=== PATIENT | male | born 1950 | race Caucasian/White ===

== ENCOUNTER → 2017-09-11 16:47 | Outpatient (CLI) | payer MEDICARE, OTHER, SELFPAY ==
--- NOTE | 2017-09-11 14:10 | BON_PTH ---
PATIENT: ONI GAY LOC: [facility] U#:[id number] AGE/SX: 75/M ROOM: RE09/11/[address]: Dr. Karl Roth MD : 1950 BED: DIS: SPEC #: [id number] RECD: 09/11/17 16:42 STATUS: SOILA SEBASTIÁN #: [id number] MAURICIO: 09/11/17 14:[address]: Karl Roth DEPT: SURGICAL PATHOLOGY RECD BY: Roge Bueno ENTERED: 09/12/17 12:12 SP TYPE: Bone OTHR DR: ANA ROSA Tissues: Vertebra, NOS Procedures: Decalcification bone/plaque Surgery Specimen Level IV HEADER OPERATION: Kyphoplasty L2 PRE-OP DIAGNOSIS: Closed fracture lumbar vertebra, burst TISSUE SUBMITTED: Bone L2 MICROSCOPIC DIAGNOSIS Bone, L2, kyphoplasty: A piece of bone with reactive changes, negative for malignancy. SJ:byron 09/13/17 MICROSCOPIC DESCRIPTION Slides are reviewed. GROSS DESCRIPTION Received is one container labeled with the patient's name and not further designated. The specimen consists of an elongated piece of willoughby bone measuring 0.7 cm in length and 0.2 cm in diameter. The entire specimen is submitted in one cassette after decalcification. / SJ:byron 09/12/17 TC:5 CPT: 81161, 33817
== END ==
PROVIDERS: Visit Provider Anesthesiology Pain Medicine
DX: S32.021A Stable burst fracture of second lumbar vertebra, initial encounter for closed fracture (principal)
CPT/HCPCS: 88305; 88311

== ENCOUNTER → 2018-10-01 | Outpatient (CLI) | payer MEDICARE, SELFPAY ==
--- NOTE | 2018-10-01 13:00 | SP.MBSS_ITS ---
PRIMARY / SECONDARY DIAGNOSIS: dysphagia (R13.10) REFERRING PHYSICIAN: FAHAD Fried CURRENT DIET: regular textures, thin liquids DENTITION: majority of dentition missing MENTAL STATUS: WFL RESPIRATORY STATUS: O2 via room air REASON FOR REFERRAL: The Patient is a 68 year old male referred for a modified barium swallow (MBS) study to objectively assess the Patients oropharyngeal swallow function under fluoroscopy secondary to reported dysphagia primarily for solids, with intermittent strong coughing episodes during intake (~ 2-3x per week). Upon further questioning, the Patient does report a strong correlation with coughing episodes during intake and suboptimal positioning (eating in recliner), which may account for the Patients reported dysphagia. MEDICAL HISTORY: Chronic obstructive pulmonary disease, osteoporosis, hypertension, back pain (per Patient report). PREVIOUS MODIFIED BARIUM SWALLOW STUDY: None ASSESSMENT PARAMETERS: The Patient participated in a Modified Barium Swallow (MBS) study on 10/01/2018. This study was recorded in the lateral view and images were sent to PACs for storage. Scoring was completed through each trial using the 8- point Penetration-Aspiration Scale (PAS) and summarized via the Modified Barium Swallow Impairment Profile (MBSImP) and the Bolus Residue Scale (BRS), with severity scoring through the Dysphagia Severity Rating Scale (DSRS) and Swallowing Performance Scale (SPS), and recommended diet textures through the International Dysphagia Diet Standardisation Initiative (IDDSI) RESULTS OF THE EVALUATION: The Patient presents with mastication and deglutition abilities found to be grossly within functional limits OBJECTIVE ASSESSMENT OF SWALLOW FUNCTION (QUANTITATIVE ? PER TRIAL): PENETRATION / ASPIRATION SCALE (HERNANDEZ): 1 = does not enter airway 2 = enters airway/above vocal folds/ejected 3 = enters airway/above vocal folds/not ejected 4 = enters airway/contacts vocal folds/ejected 5 = enters airway/contacts vocal folds/not ejected 6 = enters airway/below vocal folds/ejected 7 = enters airway/below vocal folds/not ejected despite effort 8 = enters airway/below vocal folds/no effort PENETRATION / ASPIRATION SCALE (SCORE): Thin liquid - 5 mL tsp.: 1 Thin liquids via cup (single sip): 1 Thin liquids via cup (single sip): 1 Thin liquids via cup (single sip): 1 Thin liquids via straw (single sip): 1 Pudding via spoon: 1 Regular textured cookie: 1 Thin liquids via straw (single sip): 1 OBJECTIVE ASSESSMENT OF SWALLOW FUNCTION (QUANTITATIVE ? AGGREGATE): MODIFIED BARIUM SWALLOW IMPAIRMENT PROFILE (MBSImP) LABIAL SEAL: 0 (of 4) no labial escape TONGUE CONTROL: 2 (of 3) posterior escape < 50% BOLUS PREPARATION / MASTICATION: 1 (of 3) slow prolonged; complete recollection BOLUS TRANSPORT / LINGUAL MOTION: 1 (of 4) delayed initiation of motion ORAL RESIDUE: 1 (of 4) trace residue lining oral structures INITIATION OF PHARYNGEAL SWALLOW: 0 (of 4) posterior angle of ramus SOFT PALATE ELEVATION: 0 (of 4) no bolus between soft palate & pharyngeal wall LARYNGEAL ELEVATION: 0 (of 3) complete superior movement / approximation ANTERIOR HYOID EXCURSION: 0 (of 2) complete movement EPIGLOTTIC MOVEMENT: 0 (of 2) complete inversion LARYNGEAL VESTIBULE CLOSURE: 0 (of 2) complete closure PHARYNGEAL STRIPPING WAVE: 0 (of 2) present / complete PE SEGMENT OPENIN (of 3) complete distension / duration; no obstruction TONGUE BASE RETRACTION: 1 (of 4) trace column of contrast PHARYNGEAL RESIDUE: 1 (of 4) trace residue ESOPHAGEAL BOLUS CLEARANCE: 1 (of 4) esophageal retention BOLUS RESIDUE SCALE (BRS): 2 (of 6) residue in valleculae DYSPHAGIA SEVERITY RATING SCALE (DSRS): 1 (within functional limits) SWALLOWING PERFORMANCE SCALE (SPS): 2 (WFL) OBJECTIVE ASSESSMENT OF SWALLOW FUNCTION (QUALITATIVE): ORAL PREPARATORY PHASE: prolonged mastication attributed to near edentulous status; sufficient oral containment during manipulation; preserved management of breathing / bolus formation ORAL TRANSITIONAL PHASE: no presence of transitional incompetence aside from an intermittent 2-3 second onset delay, though this may be more attributed to the Patients distaste for the barium, as this was less than consistent and did not carry over to more viscous textures; sufficient oral clearance; mild premature posterior bolus loss to the valleculae during thin liquid trials. PHARYNGEAL PHASE: pharyngeal phase appears unremarkable; no signs of pharyngeal dyssynchrony; sufficient hyolaryngeal excursion; sufficient / consistent laryngeal vestibule pressure generated to expel penetrated material; no signs of pharyngeal dysmotility; no signs of velopharyngeal impairments; no penetration / aspiration throughout trials. ESOPHAGEAL PHASE: esophageal phase appears unremarkable; mild amounts of brief retention do not appear to demonstrate a clinically significant disorder. CONTRIBUTING / COMPLICATING FACTORS AND NOTABLE FINDINGS: rather marked kyphosis, somewhat frail / fragile appearance with higher risk of sarcopenia. 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 RESPONSE TO STRATEGIES: All deficits ameliorated with reduction in bolus rate / volume adjustments, and appropriate seated position. RECOMMENDATIONS AND CONSIDERATIONS: Noted oral preparatory phase findings appear to be managed well by the Patient upon interview, as he self-selects appropriate textures to account for his suboptimal dental status; reports upcoming plans to obtain dental prosthetic devices. The Patient was able to comprehend information presented upon review and express recommended intake precautions (reduced bolus volume) to suggest high likelihood of compliance. Provided a brief overview of signs and symptoms of aspiration, with recommendations for the Patient to further discuss any further symptoms with the Patients primary care physician. No further skilled speech-language services warranted at this time targeting dysphagia. DIET TEXTURE RECOMMENDATIONS: Will recommend a regular ? soft textured (IDDSI: 6), thin liquid diet (IDDSI: 0) diet RECOMMENDED COMPENSATORY STRATEGIES: Reduced bolus volume / rate of ingestion, consider cutting tougher textures into bite sized pieces, seated upright at 90 degrees during PO intake, remain upright for 30-60 minutes post meal (GERD precaution) IMAGE COUNT: [id number] Luis James M.A., CCC-GAS CONTROLLER MBSImP Certified, LSVT Certified [facility] Speech-Language Pathology Department [email or web address]
--- NOTE | 2018-10-01 13:20 | RAD_ITS ---
STUDY: SWALLOWING STUDY REASON FOR EXAM: Male, 68 years old. TECHNIQUE: The examination was performed with Speech Pathology in attendance. Under fluoroscopic observation, the patient ingested thin barium, thick barium, barium pudding, and barium coated cracker. FLUOROSCOPY TIME: 1:44 minutes/seconds. 1602 images were obtained. RADIOLOGIST INVOLVEMENT: Radiologist was present and providing direct supervision. COMPARISON: None. FINDINGS: The following was observed during swallowing of the various mixtures of barium: Thin Barium: There was no evidence of aspiration or laryngeal penetration. Barium Pudding: There was no evidence of aspiration or laryngeal penetration. Barium Coated Cracker: There was no evidence of aspiration or laryngeal penetration. RAD/Swallowing Function w/Video IMPRESSION: Normal tailored barium swallow study. No evidence of increased risk for aspiration. The swallow study findings were discussed with the patient by the speech pathologist at the conclusion of the examination. Please see speech pathology report for more information and recommendations. Electronically Signed: Edilberto Choudhury, at 14:28 EDT , Service support ,
== END | disposition home or self-care (01) ==
PROVIDERS: Family Provider Nurse Practitioner Family; PCP Nurse Practitioner Family; Referring Provider Nurse Practitioner Family; Visit Provider Nurse Practitioner Family
DX: R13.10 Dysphagia, unspecified (principal)
CPT/HCPCS: 74230; 92611

== ENCOUNTER 2021-05-16 12:04 | Day surgery (SDC) | payer MEDICARE, MEDICAID, SELFPAY ==
--- NOTE | 2021-03-03 14:54 | NURSING ---
Addendum entered by Isadora Ocasio 03/03/21 15:00: Pt was encouraged by DEEPAK RN to keep current appointment as appreciation for his time for conveying health history was given. Pt gave reason that of next week, the scheduled appointment, was not enough time to prepare. Encouragement given. Original Note: During PAT phone interview, pt repeatedly stated that PAT should have all of this information. Pt instructed that PAT did not have the health information as PAT did not have the record from the doctor's office. DEEPAK RN apologized in a soft voice repeatedly for the inconvenience and repeatedly conveyed appreciation for pt's time and repeated understanding for the frustration. Pt continued throughout interview to raise his voice at DEEPAK RN. After collecting health history, DEEPAK SKY began giving instructions regarding when the OR sec'y would call with his arrival time. Pt stated that the scheduled date for the EGD would not work. Pt instructed to call Dr Landa's office.
[2021-05-16] VITALS (9 sets, daily range): BP systolic 90–130; BP diastolic 58–70; PULSE 61–73; RESP 16–18; TEMP 36.1–36.3; O2SAT 94–97; BMI 16.0
--- NOTE | 2021-05-16 13:00 | EGD_PTH ---
PATIENT: ONI GAY LOC: EN U#:[id number] AGE/SX: 71/M ROOM: RE05/16/[address]: Dr. Jamal Landa DO : 1950 BED: DIS: 05/16/2021 SPEC #: [id number] RECD: 05/16/21 16:18 STATUS: SOILA PEREZAmanda #: [id number] MAURICIO: 05/16/21 13:[address]: Jamal Landa DEPT: SURGICAL PATHOLOGY RECD BY: Jagdeep Patel ENTERED: 05/17/21 09:52 SP TYPE: EGD BIOPSY [facility] DR: Christine Ricardo, VALVE REPAIRER-C Tissues: Esophagus, NOS Procedures: Surgery Specimen Level IV HEADER OPERATION: EGD ([facility]) PRE-OP DIAGNOSIS: Dysphagia, GERD, weight loss TISSUE SUBMITTED: Distal esophagus biopsy MICROSCOPIC DIAGNOSIS Distal esophagus, biopsy: Gastroesophageal junctional mucosa with chronic inflammation. No evidence of goblet cell metaplasia. See comment. AM:byron 05/18/2021 COMMENT Alcian blue/PAS stain with matched control supports the above diagnosis. MICROSCOPIC DESCRIPTION Slides are reviewed. GROSS DESCRIPTION Received in fixative is one container labeled with the patient's name and designated distal esophagus biopsy. The specimen consists of multiple irregular fragments of light willoughby soft tissue that in aggregate measure 1 x 0.3 x 0.1 cm. The specimen is totally submitted in one cassette. / AM:byron 05/17/21 TC:3 CPT: 66156
[2021-05-16] MEDS: Lactated Ringers 1,000 ML 15 ML IV (13:08)
--- NOTE | 2021-05-16 13:15 | HP.PCM_ITS ---
History and Physical Date of Admission: 05/16/21 Details: ONI GAY, is a 71 M who presents to the office today for Difficulty with swallowing - pays particular attention to diet. Has difficulty with some medication. Dysphagia has been going on for a couple of years. Coughs up phlegm daily - clear with no blood. EGD done last fall where they opened something up. Has has throat dilated twice first was approximately 2 years ago. He does not know what esophageal pathology that needs to be dilated. He does have a cough from COPD. He wears about 2 L oxygen as needed. He does not have a history of obstructive sleep apnea. Feels he may need something done soon and wants to establish care at this time. He also has been struggling with his weight. He is on a Ensure protein supplement once a day. He was down to 100 pounds and is up to 112 pounds. He has been around 110 no 112 pounds for the last couple months. He is a mild esophageal reflux disease. He denies any chest pain or shortness of breath. He denies any melena or hematochezia. ROS Const Constitutional: Positive for weakness ENT ENT: Positive for difficulty swallowing Cardio Cardiology: Positive for dyspnea on exertion and difficulty breathing Gastro GI: Positive for heartburn and difficulty swallowing Genitourinary Male: Positive for urinary frequency and urinary urgency Musc Musculoskeletal: Positive for back pain, muscle weakness and restless legs Neuro Neurology: Positive for weakness and restless legs Psych Psychiatric: Positive for anxiety Endo Endocrine: Positive for cold intolerance, heat intolerance and increased urine leakage Tor/Lymp Hematologic/Lymphatic: Positive for easy bruising Exam Const General: cooperative and comfortable Nutritional Appearance: average body habitus and well nourished [facility] Head: normal to inspection Ears: hearing grossly normal bilaterally Nose: external nose normal Face and sinus: normal facial exam Mouth: oral mucosae normal Throat: posterior oropharynx normal Eyes General: appearance normal, both eyes and all related structures Neck Neck: normal visual inspection Chest Chest palpation & inspection: normal inspection of the chest and normal palpation of entire chest wall Resp Effort & Inspection: normal respiratory effort Auscultation: Bilateral: Clear to Auscultation Cardio Palpation: normal PMI Rate: regular rate Rhythm: regular rhythm GI Inspection: normal to inspection Auscultation: normal bowel sounds Percussion: normal to percussion Palpation: no hepatosplenomegaly Skin General: no rashes or lesions noted Neuro General: patient alert Extrem General: normal to inspection Psych Affect: normal affect Assessment and Plan Assessment and Plan (1) Dysphagia: Status: Acute Plan - Dr. Berry Friend, DO: He will have his esophagus evaluated for eosinophilic esophagitis, esophageal stricture, esophageal web, esophageal ring, hiatal hernia and Chew's esophagus. He elected to undergo dilation. He was explained alternatives, risk, benefits including not withstanding bleeding, infection, sepsis, perforation, need for surgery . He will have ASA of 3. (2) GERD (gastroesophageal reflux disease): Status: Acute Plan - Dr. Berry Friend, DO: At this time his reflux is not as bad as it was and wants to wait regarding medication recommendations until he has upper endoscopy. (3) Weight loss: Status: Acute Plan - Dr. Berry Friend, DO: Patient may need evaluation with CT scan abdomen pelvis. I suspect his weight loss is from cachexia. He may also need tumor markers and colonoscopy. I have re-examined the patient. There are no clinical changes since date of exam.
--- NOTE | 2021-05-16 13:46 | OP.EGD_ITS ---
Patient Name: José Miguel Thorne Procedure Date: 05/16/2021 1:19 PM Date of : 1950 Age: 71 Procedure: Upper GI endoscopy Indications: Dysphagia Providers: Jamal Landa DO Patient Profile: This is a 71 year old male. Refer to note in patient chart for documentation of history and physical. Patient has symptoms of chronic dysphagia and dysphagia with solids. Complications: No immediate complications. Procedure: Pre-Anesthesia Assessment: - Prior to the procedure, a History and Physical was performed, and patient medications and allergies were reviewed. The risks and benefits of the procedure and the sedation options and risks were discussed with the patient. All questions were answered and informed consent was obtained. Patient identification and proposed procedure were verified by the physician in the pre-procedure area. Mental Status Examination: alert and oriented. Airway Examination: normal oropharyngeal airway and neck mobility. Respiratory Examination: clear to auscultation. CV Examination: normal. Prophylactic Antibiotics: The patient does not require prophylactic antibiotics. Prior Anticoagulants: The patient has taken no previous anticoagulant or antiplatelet agents. After reviewing the risks and benefits, the patient was deemed in satisfactory condition to undergo the procedure. The anesthesia plan was to use moderate sedation / analgesia (conscious sedation). Immediately prior to administration of medications, the patient was re-assessed for adequacy to receive sedatives. The heart rate, respiratory rate, oxygen saturations, blood pressure, adequacy of pulmonary ventilation, and response to care were monitored throughout the procedure. The physical status of the patient was re-assessed after the procedure. After obtaining informed consent, the endoscope was passed under direct vision. Throughout the procedure, the patient's blood pressure, pulse, and oxygen saturations were monitored continuously. The gastroscope was introduced through the mouth, and advanced to the second part of duodenum. The patient tolerated the procedure well. Moderate Sedation: Moderate (conscious) sedation was administered by the endoscopy nurse and supervised by the endoscopist. The patient's oxygen saturation, heart rate, blood pressure and response to care were monitored. Total physician intraservice time was 15 minutes. Scope In: 1:27:37 PM Scope Out: 1:39:15 PM Total Procedure Duration Time 0 hours 11 minutes 38 seconds Findings: A moderate Schatzki ring was found at the cricopharyngeus, in the upper third of the esophagus and in the lower third of the esophagus. A guidewire was placed and the scope was withdrawn. Dilation was performed with a Savary dilator with no resistance at 54 Fr. The dilation site was examined following endoscope reinsertion and showed moderate improvement in luminal narrowing. Estimated blood loss was minimal. LA Grade A (one or more mucosal breaks less than 5 mm, not extending between tops of 2 mucosal folds) esophagitis with no bleeding was found 34 to 35 cm from the incisors. Biopsies were taken with a cold forceps for histology. Verification of patient identification for the specimen was done. Estimated blood loss was minimal. There was also a 8 mm isolated gastric inlet patch that was seen in the proximal esophagus. A medium-sized hiatal hernia was present. A medium amount of a phytobezoar was found in the gastric antrum. Food (residue) was found in the duodenal bulb, in the first portion of the duodenum and in the second portion of the duodenum. Impression: - Moderate Schatzki ring. Dilated. - LA Grade A reflux esophagitis. Biopsied. - Medium-sized hiatal hernia. - A medium amount of a phytobezoar in the stomach. - Retained food in the duodenum. Recommendation: - Discharge patient to home. - Resume previous diet. - Continue present medications. - Await pathology results. - Return to my office in 2 weeks. Procedure Code(s): --- Professional --- 99045, Esophagogastroduodenoscopy, flexible, transoral; with insertion of guide wire followed by passage of dilator(s) through esophagus over guide wire 73669, 59, Esophagogastroduodenoscopy, flexible, transoral; with biopsy, single or multiple 10234, 59, Moderate sedation services provided by the same physician or other qualified health eye care professional performing the diagnostic or therapeutic service that the sedation supports, requiring the presence of an independent trained observer to assist in the monitoring of the patient's level of consciousness and physiological status; initial 15 minutes of intraservice time, patient age 5 years or older CPT copyright 2017 [employer]. All rights reserved. The codes documented in this report are preliminary and upon bacteriologist food review may be revised to meet current compliance requirements. Jamal Landa DO 05/16/2021 1:46:19 PM This report has been signed electronically. Number of Addenda: 1 Note Initiated On: 05/16/2021 1:19 PM Addendum Number: 1 Addendum Date: 02/07/2022 7:10:51 AM MAC was used instead of moderate sedation for the patient. Jamal Landa DO 02/07/2022 7:10:55 AM This report has been signed electronically.
--- NOTE | 2021-05-16 13:46 | OP.CCLET_ITS ---
02/07/2022 Christine Ricardo Re : Upper GI endoscopy procedure for José Miguel Beckham Susananjelica This procedure was performed on Sunday, May 16, 2021. My impressions and recommendations are as follows: Impressions : - Moderate Schatzki ring. Dilated. - LA Grade A reflux esophagitis. Biopsied. - Medium-sized hiatal hernia. - A medium amount of a phytobezoar in the stomach. - Retained food in the duodenum. Recommendations : - Discharge patient to home. - Resume previous diet. - Continue present medications. - Await pathology results. - Return to my office in 2 weeks. My findings are described in the full procedure note, which is enclosed. If I can be of further assistance, please feel free to contact me at . Sincerely, Jamal Friend, 05/16/2021 1:46:19 PM This report has been signed electronically.
== END 2021-05-16 14:45 | disposition home or self-care (01) ==
LOC: EN 12:08 → AC 12:13
PROVIDERS: PCP Nurse Practitioner Family; Referring Provider Nurse Practitioner Family; Visit Provider Internal Medicine Gastroenterology
PROC: 0DJ08ZZ Inspection of Upper Intestinal Tract, Via Natural or Artificial Opening Endoscopic (ICD-10-PCS; CPT 43235; principal; 2021-05-16 12:55)
DX: K21.00 Gastro-esophageal reflux disease with esophagitis, without bleeding (principal); K44.9 Diaphragmatic hernia without obstruction or gangrene; K22.2 Esophageal obstruction; F17.200 Nicotine dependence, unspecified, uncomplicated; J44.9 Chronic obstructive pulmonary disease, unspecified; F32.A Depression, unspecified; M81.0 Age-related osteoporosis without current pathological fracture; Z79.899 Other long term (current) drug therapy; Z99.81 Dependence on supplemental oxygen
CPT/HCPCS: 43239; 43248; 88305; J7120; C1769; J2405